=== PATIENT | female | born 1980 | race Caucasian/White ===

== ENCOUNTER → 2019-12-12 16:19 | Outpatient (CLI) | payer OTHER, SELFPAY ==
--- NOTE | ~2019-12-12 | MM_ITS ---
EXAMINATION: MM screening [facility] BI w all HISTORY: Screening mammogram TECHNIQUE: Craniocaudal and mediolateral oblique 3-D tomosynthesis images were obtained and synthetic 2-D images were generated. CAD analysis was submitted and interpreted. COMPARISON: No prior mammogram is available for comparison at this institution. BREAST PARENCHYMAL COMPOSITION: The breasts are almost entirely fatty. FINDINGS: There is no evidence of suspicious mass, calcification, or architectural distortion to sugg est malignancy in either breast. There has been no suspicious interval change. IMPRESSION: 1. No mammographic evidence of malignancy. 2. Recommend routine screening mammography in one year. BI-RADS Category 1: Negative Reviewed, dictated and finalized at location A.
== END ==
PROVIDERS: PCP Family Medicine; Visit Provider Obstetrics & Gynecology
DX: Z12.31 Encounter for screening mammogram for malignant neoplasm of breast (principal)
CPT/HCPCS: 77063; 77067

== ENCOUNTER → 2021-01-23 16:50 | Outpatient (CLI) | payer OTHER, SELFPAY ==
--- NOTE | ~2021-01-23 | MM_ITS ---
EXAMINATION: MM screening [facility] BI w all HISTORY: Screening TECHNIQUE: Craniocaudal and mediolateral oblique 3-D tomosynthesis images were obtained and synthetic 2-D images were generated. CAD analysis was submitted and interpreted. COMPARISON: 12/12/2019 BREAST PARENCHYMAL COMPOSITION: The breasts are almost entirely fatty. FINDINGS: There is no evidence of suspicious mass, calcification, or architectural distortion to sugg est malignancy in either breast. There has been no suspicious interval change. IMPRESSION: 1. No mammographic evidence of malignancy. 2. Recommend routine screening mammography in one year. BI-RADS Category 1: Negative Reviewed, dictated and finalized at location A.
== END ==
PROVIDERS: PCP Family Medicine; Visit Provider Nurse Practitioner
DX: Z12.31 Encounter for screening mammogram for malignant neoplasm of breast (principal)
CPT/HCPCS: 77063; 77067

== ENCOUNTER → 2022-02-12 07:24 | Outpatient (CLI) | payer BC, SELFPAY ==
--- NOTE | ~2022-02-12 | MM_ITS ---
EXAMINATION: MM screening [facility] BI w all HISTORY: Screening mammogram TECHNIQUE: Craniocaudal and mediolateral oblique 3-D tomosynthesis images were obtained and synthetic 2-D images were generated. CAD analysis was submitted and interpreted. COMPARISON: 01/23/2021, 12/08/2019 bilateral screening mammogram examinations BREAST PARENCHYMAL COMPOSITION: The breasts are almost entirely fatty. FINDINGS: There is no evidence of suspicious mass, calcification, or architectural distortion to sugg est malignancy in either breast. There has been no suspicious interval change. IMPRESSION: 1. No mammographic evidence of malignancy. 2. Recommend routine screening mammography in one year. BI-RADS Category 1: Negative Reviewed, dictated and finalized at location A.
== END ==
PROVIDERS: PCP Family Medicine; Visit Provider Nurse Practitioner
DX: Z12.31 Encounter for screening mammogram for malignant neoplasm of breast (principal)
CPT/HCPCS: 77063; 77067

== ENCOUNTER → 2023-03-05 12:32 | Outpatient (CLI) | payer BC, SELFPAY ==
--- NOTE | ~2023-03-05 | MM_ITS ---
EXAMINATION: MM screening [facility] BI w all HISTORY: Screening mammogram TECHNIQUE: Craniocaudal and mediolateral oblique 3-D tomosynthesis images were obtained and synthetic 2-D images were generated. CAD analysis was submitted and interpreted. COMPARISON: 02/12/2022, 01/23/2021, 12/08/2019 bilateral screening mammogram examinations BREAST PARENCHYMAL COMPOSITION: The breasts are almost entirely fatty. FINDINGS: There is no evidence of suspicious mass, calcification, or architectural distortion to sugg est malignancy in either breast. There has been no suspicious interval change. IMPRESSION: 1. No mammographic evidence of malignancy. 2. Recommend routine screening mammography in one year. BI-RADS Category 1: Negative Reviewed, dictated and finalized at location A.
== END ==
PROVIDERS: PCP Nurse Practitioner; Visit Provider Nurse Practitioner
DX: Z12.31 Encounter for screening mammogram for malignant neoplasm of breast (principal)
CPT/HCPCS: 77063; 77067

== ENCOUNTER 2024-06-02 15:00 | Outpatient (CLI) | payer OTHER, SELFPAY ==
--- NOTE | ~2024-06-02 | MM_ITS ---
EXAMINATION: MM screening [facility] BI w all HISTORY: Screening mammogram TECHNIQUE: Craniocaudal and mediolateral oblique 3-D tomosynthesis images were obtained and synthetic 2-D images were generated. CAD analysis was submitted and interpreted. COMPARISON: 03/05/2023, 02/12/2022, 01/23/2021, 12/12/2019 BREAST PARENCHYMAL COMPOSITION:Not Dense. The breasts are almost entirely fatty FINDINGS: No suspicious mass, calcification, or architectural distortion are identified in either rita ast to suggest malignancy. There has been no suspicious interval change. IMPRESSION: No mammographic evidence of malignancy. Recommend routine screening mammography in one year. BI-RADS Category 1: Negative Reviewed, dictated and finalized at location .
== END 2024-06-02 15:01 | disposition home or self-care (01) ==
LOC: MICIMG 15:01
PROVIDERS: PCP Nurse Practitioner; Visit Provider Nurse Practitioner
DX: Z12.31 Encounter for screening mammogram for malignant neoplasm of breast (principal)
CPT/HCPCS: 77063; 77067

== ENCOUNTER 2025-04-12 00:52 | Day surgery (SDC) | payer OTHER, SELFPAY ==
[2025-03-27 14:06] VITALS: BMI 46.2
--- OUTSIDE RECORDS SUMMARY | 2025-04-12 00:54 | XMS_ITS | Clinical Summary ---
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 Pulse 93 08/03/2012 7:58 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 Temperature - - Respiratory Rate - - Oxygen Saturation - - Inhaled Oxygen Concentration - - Weight 122.5 kg (270 lb) 08/03/2012 7:58 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 Height 172.7 cm (5' 8) 08/03/2012 7:58 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 Body Mass Index 41.05 08/03/2012 7:58 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 Plan of Treatment Health Maintenance Due Date Last Done Comments Cervical Cancer Screening Pa p Smear (Age 30 to 64) Every 3 Years 1979 Colorectal Cancer Screening Colonoscopy (10 Years) 1979 Annual Physical 1982 Hepatitis C 1997 DTaP, Tdap and Td Vaccines ( 1 - Tdap) 1998 Hepatitis B Vaccines (1 of 3 - 19+ 3-dose series) 1998 HPV Vaccines (1 - 3-dose SCD M series) 2006 Cervical Cancer Screening Pa p with HPV Testing (Age 30 to 64) Every 5 Years 2009 Cervical Cancer Screening with HPV 2009 Mammogram Screening 2019 COVID-19 Vaccine (2023-2 5 season) 2024 Meningococcal B Vaccine Aged Out No l onger eligible based on patient's age to complete this topic Meningococcal Vaccine Aged Out No bob manuel eligible based on patient's age to complete this topic Pneumococcal Vaccine: Pediat rics (0 to 5 Years) and At-Risk Patients (6 to 49 Years) Aged Out No longer eligible b ased on patient's age to complete this topic RSV Immunizations Under 20 Months Aged Out No longer eligible based on patient's age to complete this topic
[2025-04-12 06:16] VITALS: BP 141/56; PULSE 75; RESP 18; TEMP 36.2; O2SAT 98; BMI 46.3
[2025-04-12] MEDS: LACTATED RINGERS 1,000 ML 150 ML IV CONT (06:31)
--- NOTE | 2025-04-12 07:28 | P.PNAN_ITS ---
Anes - Initial Pre Proc Eval Procedure: Operation Date: 04/12/25 07:30 Proposed Procedures p Screening Colonoscopy - Enoch Tamez MD Date/Time: 04/12/25 07:28 Surgeon: Enoch Tamez MD Pre Op Diagnosis: Encounter for screening for malignant neoplasm of Patient Data Age: 44 Gender: F Height: 1.73 m Weight: 138.4 kg Last Vital Signs Temp 97.2 F L 04/12/25 06:16 Pulse 75 04/12/25 06:16 Resp 18 04/12/25 06:16 BP 141/56 H 04/12/25 06:16 Pulse Ox 98 04/12/25 06:16 O2 Del Method Room Air 04/12/25 06:16 Allergies Allergy/AdvReac Type Severity Reaction Status Date / Time cefaclor Allergy Intermediate Anaphylactic Verified 04/12/25 06:15 Shock Home Medications ?Medication ?Instructions ?Recorded ?Confirmed ?Type cholecalciferol (vitamin D3) 25 25 mcg PO DAILY 02/25/22 03/27/25 History mcg (1,000 unit) capsule magnesium 200 mg tablet 200 mg PO DAILY 02/25/22 03/27/25 History mecobalamin (vitamin B12) 1,000 1,000 mcg sublingual DAILY 02/25/22 03/27/25 History mcg disintegrating tablet,sublingual diclofenac sodium 50 mg 50 mg PO BID #60 tabs 05/07/24 03/27/25 Rx tablet,delayed release sertraline 50 mg tablet 50 mg PO DAILY #90 tabs 06/23/24 03/27/25 Rx Patient hx anesthesia problems: none Family hx anesthesia problems: none Results Review: All pre-operative results and documents have been reviewed as part of the pre- operative evaluation. FORMERLY [facility], [facility] Past Medical History Medical History BMI 45.0-49.9, adult Current mild episode of major depressive disorder Plantar fasciitis, bilateral Arthralgia Anxiety Anxiety Vitamin B12 deficiency Surgical History Surgical History History of tonsillectomy and adenoidectomy History of repair of anterior cruciate ligament of right knee Family History Family History Mother Cholecystitis Hypertension Grandparent Breast cancer Grandparent Ovarian cancer Grandparent Acute myocardial infarction Grandparent Alzheimers disease Social History Social History Smoking status: Never smoker Second hand tobacco smoke exposure: No Alcohol intake: current Alcohol use details: seldom; socially; 2 drinks/year Substance use: never Substance use type: does not use Lack of Transportation: No Lack of Food: Never True Current Housing: I Have Housing Concerned About Future Housing: No Difficulty Paying Gas/Electric Bills: No Difficulty Paying for Meds: No Currently Unemployed: No Education: Master's Degree or Higher Difficulty w/ Childcare or Family Care: No Living arrangements: with family Occupation/Education: occupation Gender identity (if verbalized by the patient): Female Sexual Orientation (if Verbalized by the Patient): Lesbian, Mccall, or Homosexual Spiritual care concerns: No Agree to blood products: Yes Anes - Eval Final PreProcedure Day of Procedure 04/12/25 07:28 Patient weight: morbidly obese Lungs: normal air movement Airway: Mallampati scale class II Neurological: alert and oriented Last oral intake: >/= 8 hours ASA classification: III Emergent: no Anesthetic plan: proceed Anesthesia type and monitoring: general GIVS and standard monitoring Results Review: All pre-operative results and documents have been reviewed as part of the pre-operative evaluation. BMI 46. Overall good functional status, no cp or sob w 1-2 fos. Informed Consent: The patient's anesthetic plan and its attendant risks and benefits were discussed with the patient/family/POA. Questions were solicited and answers provided to the satisfaction of the patient/family/POA.
--- NOTE | 2025-04-12 07:29 | PM.IMHP ---
H&P: HPI History of Present Illness Date/Time: 04/12/25 07:29 Chief Complaint: Screening colonoscopy Narrative: This is the patient's first colonoscopy. There are no GI symptoms and there is no family history of colorectal cancer. Review of Systems Review of Systems: All systems reviewed & are unremarkable except as noted in HPI and below PMFSH Past Medical History Medical History BMI 45.0-49.9, adult Current mild episode of major depressive disorder Plantar fasciitis, bilateral Arthralgia Anxiety Anxiety Vitamin B12 deficiency Surgical History Surgical History History of tonsillectomy and adenoidectomy History of repair of anterior cruciate ligament of right knee Family History Family History Mother Cholecystitis Hypertension Grandparent Breast cancer Grandparent Ovarian cancer Grandparent Acute myocardial infarction Grandparent Alzheimers disease Social History Social History Smoking status: Never smoker Second hand tobacco smoke exposure: No Alcohol intake: current Alcohol use details: seldom; socially; 2 drinks/year Substance use: never Substance use type: does not use Lack of Transportation: No Lack of Food: Never True Current Housing: I Have Housing Concerned About Future Housing: No Difficulty Paying Gas/Electric Bills: No Difficulty Paying for Meds: No Currently Unemployed: No Education: Master's Degree or Higher Difficulty w/ Childcare or Family Care: No Living arrangements: with family Occupation/Education: occupation Gender identity (if verbalized by the patient): Female Sexual Orientation (if Verbalized by the Patient): Lesbian, Mccall, or Homosexual Spiritual care concerns: No Agree to blood products: Yes Meds Home Medications and Allergies Home Medications ?Medication ?Instructions ?Recorded ?Confirmed ?Type cholecalciferol (vitamin D3) 25 25 mcg PO DAILY 02/25/22 03/27/25 History mcg (1,000 unit) capsule magnesium 200 mg tablet 200 mg PO DAILY 02/25/22 03/27/25 History mecobalamin (vitamin B12) 1,000 1,000 mcg sublingual DAILY 02/25/22 03/27/25 History mcg disintegrating tablet,sublingual diclofenac sodium 50 mg 50 mg PO BID #60 tabs 05/07/24 03/27/25 Rx tablet,delayed release sertraline 50 mg tablet 50 mg PO DAILY #90 tabs 06/23/24 03/27/25 Rx Allergies Allergy/AdvReac Type Severity Reaction Status Date / Time cefaclor Allergy Intermediate Anaphylactic Verified 04/12/25 06:15 Shock Vital Signs Vital Signs - 24 hr 04/12/25 06:16 Temperature 97.2 F L Pulse Rate 75 Respiratory Rate 18 Blood Pressure 141/56 H Pulse Oximetry 98 Oxygen Delivery Room Air Exam Const: General: cooperative and healthy appearing Resp: Effort & Inspection: normal respiratory effort and able to speak in complete sentences Auscultation: clear to auscultation bilaterally Cardio: Rate: regular rate Rhythm: regular rhythm GI: Inspection: normal to inspection GI Palp: No No hepatosplenomegaly present Auscultation: normal bowel sounds Rectal Exam: deferred Skin: General skin exam: normal color Psych: Appearance: grossly normal Mental Status: mental status grossly normal Assessment and Plan Assessment and plan (1) Encounter for screening colonoscopy: Code(s): Z12.11 - Encounter for screening for malignant neoplasm of colon Status: Acute Assessment and Plan: The patient is deemed a good candidate for the procedure. Consent signed. Will proceed.
--- NOTE | 2025-04-12 07:48 | S_PTH ---
PATIENT: Anjum Oliver LOC: [facility] U#:[id number] AGE/SX: 44/F ROOM: RE04/12/[address]: Enoch Tamez MD : 1980 BED: DIS: 04/12/2025 SPEC #: [id number] RECD: 04/12/25 09:39 STATUS: DORIS REQ #: [id number] PING: 04/12/25 07:[address]: Enoch Tamez DEPT: [facility] Surgical RECD BY: Shirley Llanos ENTERED: 04/12/25 09:39 SP TYPE: Surgical OTHR DR: Nayely DiazMD Tissues: A - Colon Polypectomy B - Colon Polypectomy Procedures: Hematoxylin and Eosin Stain Gross and Microscopic Level 4
[2025-04-12 07:54] VITALS: BP 108/56; PULSE 69; RESP 20; O2SAT 99
[2025-04-12 08:04] VITALS: BP 120/70; PULSE 78; RESP 20; O2SAT 100
[2025-04-12 08:14] LABS: BEDSIDEPREGUCG Negative (Negative)
== END 2025-04-12 08:27 | disposition home or self-care (01) ==
PROVIDERS: PCP Family Medicine; Referring Provider Obstetrics & Gynecology Gynecology; Visit Provider Internal Medicine Gastroenterology
PROC: 0DJD8ZZ Inspection of Lower Intestinal Tract, Via Natural or Artificial Opening Endoscopic (ICD-10-PCS; CPT 45378; principal; 2025-04-12 07:30)
DX: Z12.11 Encounter for screening for malignant neoplasm of colon (principal); D12.2 Benign neoplasm of ascending colon; K63.5 Polyp of colon; K57.30 Diverticulosis of large intestine without perforation or abscess without bleeding; F32.0 Major depressive disorder, single episode, mild; F41.9 Anxiety disorder, unspecified; E53.8 Deficiency of other specified B group vitamins; M72.2 Plantar fascial fibromatosis; E66.01 Morbid (severe) obesity due to excess calories; Z68.42 Body mass index [BMI] 45.0-49.9, adult; Z98.890 Other specified postprocedural states; Z80.3 Family history of malignant neoplasm of breast; Z80.41 Family history of malignant neoplasm of ovary; Z82.49 Family history of ischemic heart disease and other diseases of the circulatory system
CPT/HCPCS: 45385; 88305; J2003; J2704; J7120

== ENCOUNTER 2025-06-28 14:21 | Outpatient (CLI) | payer OTHER, SELFPAY ==
--- NOTE | ~2025-06-28 | MM_ITS ---
EXAMINATION: screening [facility] BI w all INDICATION: Asymptomatic, referred for screening mammogram COMPARISON: 06/02/2024 through 12/12/2019 TECHNIQUE: Digital Breast Tomosynthesis CC, MLO views of Both breasts were obtained with computer-aided detection to assist in interpretation of the study. FINDINGS: The breasts are almost entirely fatty. There is a mass in the subareolar right breast at anterior third. Elsewhere, there are no mammographic features of malignancy. IMPRESSION: 1. Right breast Mass. 2. No evidence of malignancy in the Left breast. RECOMMENDATION: Right breast Diagnostic mammogram with true lateral, appropriate spot compression views and an ultrasound if needed. BI-RADS Category 0: Incomplete: Needs additional imaging evaluation. Reviewed, dictated and finalized at location B. IMPRESSION: 1. Right breast Mass. 2. No evidence of malignancy in the Left breast. RECOMMENDATION: Right breast Diagnostic mammogram with true lateral, appropriate spot compressi on views and an ultrasound if needed. BI-RADS Category 0: Incomplete: Needs additional imaging evaluation.
== END 2025-06-28 14:22 | disposition home or self-care (01) ==
LOC: MICIMG 14:23
PROVIDERS: PCP Family Medicine; Visit Provider Nurse Practitioner
DX: Z12.31 Encounter for screening mammogram for malignant neoplasm of breast (principal); R92.8 Other abnormal and inconclusive findings on diagnostic imaging of breast
CPT/HCPCS: 77063; 77067

== ENCOUNTER 2025-08-08 13:23 | Outpatient (CLI) | payer OTHER, SELFPAY ==
--- NOTE | ~2025-08-08 | MMUS_ITS ---
EXAMINATION: MM diagnostic [facility] RT w all, US breast RT limited INDICATION: 44-year old female; BI-RADS 0, callback to evaluate Right breast mass COMPARISON: 06/28/2025 TECHNIQUE: Digital breast tomosynthesis ML and spot compression CC and MLO views of right breast were obtained with computer-aided detection to assist in interpretation of the study. FINDINGS: The breasts are almost entirely fatty. A circumscribed equal density mass in the subareolar at anterior depth within the right breast persisted. Ultrasound was performed for further evaluation. RIGHT BREAST ULTRASOUND FINDINGS: Targeted evaluation of subareolar right breast was completed. There is no suspicious solid or cystic masses seen. Only normal fibroglandular tissue is identified. IMPRESSION: Benign right breast mass subareolar location which in retrospect has been stable on the mammogram dating back to the study of 02/12/2022. BI-RADS 2, BENIGN Reviewed, dictated and finalized at location B. M APPROVER IMPRESSION: Benign right breast mass subareolar location which in retrospect wilkins s been stable on the mammogram dating back to the study of 02/12/2022. BI-RADS 2, BENIGN
== END 2025-08-08 13:24 | disposition home or self-care (01) ==
LOC: ANHFOHIMG 13:25
PROVIDERS: PCP Family Medicine; Visit Provider Obstetrics & Gynecology Gynecology
DX: R92.8 Other abnormal and inconclusive findings on diagnostic imaging of breast (principal)
CPT/HCPCS: 76642; 77061; 77065; G0279